=== PATIENT | female | born 1980 | race Caucasian/White ===

== ENCOUNTER 2025-05-02 15:17 | Outpatient (CLI) | payer SELFPAY ==
--- NOTE | 2025-05-02 15:28 | CT_ITS ---
WS: [id number] CT abdomen pelvis wo/w [address] REASON FOR EXAM: VESICOVAGINAL FISTULA IV CONTRAST ADMINISTERED: 100 mL of Omnipaque 350. TECHNIQUE: Multiple axial images were obtained through the abdomen and pelvis without and with intravenous contrast enhancement. Coronal and sagittal reconstructions were obtained. COMPARISON EXAMINATION: None TOTAL EXAM DLP: 1408.[address] scans at [facility] use at least one of these dose optimization techniques: automated exposure control; mA and/or kV adjustment per patient size (includes targeted exams where dose is matched to clinical indication); or iterative reconstruction. FINDINGS: ABDOMEN: Post cholecystectomy. No focal liver abnormality. Calcified granulomas disease within the spleen. Normal adrenal glands and kidneys. Small amount of free fluid along the anterior lateral and posterior liver. No significant fluid in the paracolic gutters. No abdominal focal fluid collection, adenopathy, or mass. No bowel abnormality. No abnormality of the lumbar spine. PELVIS: Free fluid in the anterior pelvis between bowel loops and adjacent to the dome of the bladder. There is a focal fluid collection interposed between the bladder and the rectum. 2.5 x 3.8 x 2.8 cm. The wall of the fluid collection is thickened with mild enhancement. This may be within the hysterectomy bed contiguous with the vagina. No gas within the fluid and the fluid is the same intensity as the free fluid and the fluid in the bladder. Pertaining to the history, no contrast extravasation was seen from the pelvic ureters or bladder, however there was minimal if any excreted contrast in these structures. Normal bony pelvis. CT/CT abdomen pelvis wo/w [id number] IMPRESSION: Small amount of free peritoneal fluid around the liver as above. Free fluid wit hin the pelvis. This could represent nonspecific postoperative serous fluid. If this were urine , the patient should have an elevated creatinine. Focal fluid collection in the pelvis as above. This could also be nonspecific w alled off postoperative serous fluid. However, based on the history this could be a focal collection of urine delete in the hysterectomy bed contiguous with t he vagina, less likely abscess.
[2025-05-02] MEDS: iohexol 350 mg/mL 500 mL Btl (per mL) IV (16:24)
== END 2025-05-02 15:18 | disposition home or self-care (01) ==
LOC: RAD 15:19
PROVIDERS: Family Provider Family Medicine; PCP Electrodiagnostic Medicine; Visit Provider Electrodiagnostic Medicine
DX: N82.0 Vesicovaginal fistula (principal); D73.89 Other diseases of spleen; R18.8 Other ascites; Z90.49 Acquired absence of other specified parts of digestive tract; Z90.710 Acquired absence of both cervix and uterus
CPT/HCPCS: 74178